=== PATIENT | female | born 1990 | race Caucasian/White ===

== ENCOUNTER 2017-02-20 03:11 | Emergency (ER) | payer OTHER ==
[~2017-02-20] VITALS: Ht 165.1 cm; Wt 65.8 kg
[2017-02-20 03:11] VITALS: BP_SYST 124
[2017-02-20] MEDS ORDERED: HYDROcodone/ACETAMIN 5-325 MG TAB (NORCO/ VICODIN) PO ONE (04:15)
[2017-02-20 04:46] VITALS: BP_SYST 124
== END 2017-02-20 04:46 | disposition home or self-care (01) ==
LOC: SED 03:11
DX: S29.012A Strain of muscle and tendon of back wall of thorax, initial encounter (principal); S30.811A Abrasion of abdominal wall, initial encounter; M25.551 Pain in right hip; M25.552 Pain in left hip; V43.52XA Car driver injured in collision with other type car in traffic accident, initial encounter; Y93.89 Activity, other specified; Y92.488 Other paved roadways as the place of occurrence of the external cause; Y99.8 Other external cause status
CPT/HCPCS: 99283